=== PATIENT | female | born 1945 | race Asian ===

== ENCOUNTER 2019-07-13 11:03 | Outpatient (CLI) | payer MEDICARE | END 2019-07-13 23:59 | disposition home or self-care (01) | LOC: CVU 11:03 | PROVIDERS: ATTEND Physician Assistant Surgical | DX: I73.9 Peripheral vascular disease, unspecified (principal) | CPT/HCPCS: 93922 ==

== ENCOUNTER 2020-05-26 10:12 | Outpatient (CLI) | payer MEDICARE ==
[2020-05-26 10:54] LABS: ALANINE AMINOTRANSFERASE 28 U/L (12-78); ANION GAP 4 mmol/L (5-15); CALCIUM 9.6 mg/dL (8.5-10.1); CHLORIDE 104 mmol/L (98-107)
[2020-05-26 10:56] LABS: ALKALINE PHOSPHATASE 103 U/L (45-117); BILIRUBIN,TOTAL 0.5 mg/dL (0.2-1.0); CHOLESTEROL, TOTAL 210 mg/dL (140-239); CREATININE 0.94 mg/dL (0.55-1.02); HDL CHOL % 33 % (28-40); HDL CHOLESTEROL (DIRECT) 69 mg/dL (40-60); LDL CHOLESTEROL,CALCULATED 125 mg/dL (54-169); LDL/HDL RATIO 1.8 (0.5-3.0); TOTAL PROTEIN 8.1 g/dL (6.4-8.2); TRIGLYCERIDES 80 mg/dL (50-200); VLDL CHOLESTEROL 16 mg/dL (0-25)
[2020-05-26 11:20] LABS: MICROSCOPIC AUTO
== END 2020-05-26 23:59 | disposition home or self-care (01) ==
LOC: LAB 10:12
PROVIDERS: ATTEND Family Medicine
DX: Z13.220 Encounter for screening for lipoid disorders (principal); R73.02 Impaired glucose tolerance (oral); N18.30 Chronic kidney disease, stage 3 unspecified
CPT/HCPCS: 36415; 80053; 80061; 81001; 83036; 83970

== ENCOUNTER → 2020-05-26 | Outpatient (CLI) | payer MEDICARE | END | disposition home or self-care (01) | LOC: CVU 10:22 | PROVIDERS: ATTEND Family Medicine | DX: I70.203 Unspecified atherosclerosis of native arteries of extremities, bilateral legs (principal); R20.2 Paresthesia of skin; M79.604 Pain in right leg; M79.605 Pain in left leg | CPT/HCPCS: 93922; 93925 ==